=== PATIENT | male | born 1955 | race Caucasian/White ===

== ENCOUNTER 2018-05-03 19:34 | Emergency (ER) | payer SELFPAY ==
--- NOTE | 2018-05-03 20:03 | ERPHSYRPT ---
- History of Present Illness Time Seen by Provider: 05/03/18 20:00 Source: patient Physician History: 62-year-old male, otherwise healthy, fell and twisted his right foot approximately 10 days ago and since then he has a swollen right foot and today when he was trying to get onto the ladder suddenly he started having a more severe pain with popping sound on his right foot, so he came to the emergency room. He denies any other symptoms. He states that he has not seen a doctor because he has never been sick. Method of Injury: fell, twisted Occurred: last week Quality: constant Severity of Pain-Max: moderate Severity of Pain-Current: moderate Lower Extremities Pain: foot: right Modifying Factors: Improves With: nothing Associated Symptoms: unable to bear weight - Review of Systems Constitutional: No Symptoms Eyes: No Symptoms Ears, Nose, & Throat: No Symptoms Respiratory: No Symptoms Cardiac: No Symptoms Abdominal/Gastrointestinal: No Symptoms Genitourinary Symptoms: No Symptoms Musculoskeletal: Joint Swelling (right foot) - Physical Exam General Appearance: no apparent distress Legs Exam: bilateral leg: non-tender Knees Exam: bilateral knee: non-tender Ankle Exam: right ankle: soft tissue tenderness Foot Exam: right foot: pain, soft tissue tenderness Procedures - Splinting Location of Splint: Right, Foot Type of Splint: Walking Boot/Shoe Splint Applied By: ED Nurse Pre-Proc Neuro Vasc Exam: normal Post-Proc Neuro Vasc Exam: neurovascular intact - Radiology Exams Foot X-ray Interpretation: Reviewed by me (fracture 4th 5th metatarsal base) Ordered Tests: Active Orders 24 hr Category Date Time Status FOOT (MINIMUM 3 VIEWS) Stat Exams 05/03/18 19:49 Ordered - Progress Progress: unchanged Counseled pt/family regarding: diagnosis, need for follow-up, rad results - Departure Time of Disposition: 20:06 Departure Disposition: Home Clinical Impression: Fracture of foot Qualifiers: Encounter type: initial encounter Fracture type: closed Laterality: right Qualified Code(s): S92.901A - Unspecified fracture of right foot, initial encounter for closed fracture Condition: Stable Critical Care Time: No Referrals: JOHN AG [Primary Care Provider] - GUME WHITT [NON-STAFF PHY W/O PRIVILEGES] - Instructions: Foot Fracture (DC) Additional Instructions: KWADWO JEFF was seen on 05/03/18 n the Emergency Room. At that time you were treated for an emergent condition, during your visit Laboratory, Radiology and/or other procedures may have been ordered. It is very important that you follow-up with your Primary Care Physician JOHN AG within the next 24-48 hours to review your Emergency Room visit and the final results of testing that was ordered. Some test results such as Urine Cultures, Blood Cultures, and other cultures if ordered will not be finalized for 24-48 hours. If you do not have a Primary Care Provider please call the medical records department at [phone] to obtain a copy of your results or you may sign into our patient portal to obtain these results by visiting us @ [email or web address] and completing the following steps: 1. Click on the Patient Portal link 2. Click the Patient Self Enrollment Link to complete the enrollment form and entering your 3. Once the enrollment form is completed you will receive an email with a temporary ID and password at the email address you provided. 4. Next choose a user name and password. Your user name must be at least 4 characters long and your password must be at least 4 characters long. 5. Choose a security question from the list and provide your answer to the question. If you already have signed into the Health Portal you may access your Health Care Information 14/05 by the following steps: 1. Login to our website @ [email or web address] 2. Enter your original user name and password. FAQS [facility] Health Portal is an online tool that contains your Lab Results, Radiology Reports, Visit History, Discharge Instructions and Health Summary Lab and Radiology Results will not be available for 72 hours on the portal. The Portal is a secure site, passwords are encryted and URLs are re-written so they cannot be copied and pasted. You and authorized family members are the only ones who can access your Portal. Also there is a timeout feature that protects your information if you leave the Portal page open. If you have technical difficulty please use the Contact Us link on the page this will allow you to submit any questions you have regarding the Portal or you may contact the Medical Record Department at [phone]. Prescriptions: Naproxen 375 mg [Naprosyn 375 mg] 375 mg PO Q8H #30 tablet
[2018-05-03 20:19] VITALS: BP 170/89; PULSE 66; O2SAT 98
--- NOTE | 2018-05-03 20:29 | XRAY ---
Indication: Pain following injury. Comparison: None 3 nonweightbearing views of the right foot demonstrates lateral dislocation of the 1st-5th metatarsals with relationship to the tarsal bones, nondisplaced fracture involving the base of the 3rd metatarsal, and soft tissue swelling consistent with Lisfranc fracture dislocation. Incidental small plantar heel spur.
== END 2018-05-03 21:00 | disposition home or self-care (01) ==
LOC: ED 19:34
DX: S92.331A Displaced fracture of third metatarsal bone, right foot, initial encounter for closed fracture (principal); M79.671 Pain in right foot; W19.XXXA Unspecified fall, initial encounter
CPT/HCPCS: 73630; 99283; L4386